=== PATIENT | female | born 1960 | race Caucasian/White ===

== ENCOUNTER 2024-08-17 11:30 | Outpatient (RCR) | payer MEDICARE, SELFPAY ==
--- NOTE | 2024-07-28 15:42 | PTNOTE_ITS ---
PT OP Initial Eval Patient Information Outpatient Physical Therapy Treatment Date: 07/28/24 Visit Reasons: RIGHT HUMEROUS FRACTURE Medical Diagnosis: Right Proximal Humerus Fracture Treatment Dx #1: Right Shoulder Mobility Deficits Treatment Dx #2: Right Shoulder Weakness Start of Care: 07/28/24 Date of Onset: 06/16/24 Smoking Status Smoking Status: Never smoker Initial Assessment Subjective: Pt is a 64 y/o female s/p right proximal humerus ORIF with bone graft secondary to fracture from a fall. Pt still has pain (7/10) with activities. Pt has limitation with self care, cooking, cleaning, chores, ovehead motions, and performing recreational activities. Objective: Right Shoulder PROM Flexion: 90 deg Abduction: 90 deg ER: neutral IR: unable Right Shoulder AROM Flexion: neutral Abduction: 10 deg ER and IR: unable Right Shoulder MMTs: grossly 2-/5 Right Scapula MMTs: grossly 2-/5 Assessment: Pt demonstrate right shoulder mobility and strength deficits s/p surgery leading to difficulty with ADLs. Pt will benefit from physical therapy to increase ROM, strength, and work on stability. Short Term and Pipe Fitter Helper Goals 1) Increase right shoulder PROM WFL in 12 wks to prevent frozen shoulder 2) Increase right shoulder AROM WFL in 12 wks to be able to perform overhead motions 3) Increase right shoulder MMTs grossly to 4-/5 in 12 wks to be able to perform lifting activities 4) Increase right scapula MMTs grossly to 4-/5 in 12 wks to be able to perform self care activities 5) Indep with HEP Treatment Plan 1) Manual Therapy 2) Therapeutic Activities 3) Therapeutic Exercises 4) Modalities (ice, heat) Frequency and Duration: 2 x wk for 12 wks Certification Dates: 07/28/24 to 10/28/24 Procedure Charges OP PT Eval Mod Complex 30 minutes: Yes
--- NOTE | 2024-07-30 16:12 | PT.ODAYNRPT ---
PT Outpatient Daily Note OP Daily Note Outpatient Physical Therapy Treatment Date: 07/30/24 Visit Reasons: RIGHT HUMEROUS FRACTURE Subjective: Pt's shoulder feels a little sore and swollen. Pt mention she's been doing HEP x 3 daily and using ice. Objective: Please see flow chart for list of ther ex performed Assessment: guarded with shoulder PROM in all plane due to fear of pain. Pt's shoulder PROM increase in flexion and abduction post PT session Plan: Continue with PT Length of Time (minutes) of Treatment: 30 Minutes Procedure Charges Therapeutic Exercise 15 minutes: Yes Manual Hot Frame Tender 15 minutes: Yes
--- NOTE | 2024-08-05 12:53 | PT.ODAYNRPT ---
PT Outpatient Daily Note OP Daily Note Outpatient Physical Therapy Treatment Date: 08/05/24 Visit Reasons: RIGHT HUMEROUS FRACTURE Subjective: Pt's shoulder was sore after last session. Pt notice slight improvement with arm. Pt called surgeon's office for anti-inflammatory meds. Objective: Please see flow chart for list of ther ex performed Assessment: continue to notice edema in the forearm and hand. Advised patient to consult with surgeon next week when she follow up. Pt's PROM improved post PT session Plan: Continue with PT Length of Time (minutes) of Treatment: 30 Minutes Procedure Charges Therapeutic Exercise 30 minutes: Yes
--- NOTE | 2024-08-10 10:59 | PT.ODAYNRPT ---
PT Outpatient Daily Note OP Daily Note Outpatient Physical Therapy Treatment Date: 08/10/24 Visit Reasons: RIGHT HUMEROUS FRACTURE Subjective: Pt dropped a plate this morning due to hand weakness. Pt notice her arm still very weak and feeling inpatient. Objective: Please see flow chart for list of ther ex perfromed Assessment: progressing with shoulder abduction PROM with less pain and guarding. Continue to add more AAROM exercises with good tolerance Plan: Continue with PT Length of Time (minutes) of Treatment: 30 Minutes Procedure Charges Therapeutic Exercise 30 minutes: Yes
--- NOTE | 2024-08-13 10:54 | PT.ODAYNRPT ---
PT Outpatient Daily Note OP Daily Note Outpatient Physical Therapy Treatment Date: 08/13/24 Visit Reasons: RIGHT HUMEROUS FRACTURE Subjective: Pt's did not take pain medication this AM. Pt had a follow up appt with surgeon and is impress with her progress so far. Pt was also prescribed medication to help control swelling in the arm. Objective: Please see flow chart for list of ther ex performed Assessment: progressing with shoulder flexion and abduction PROM past shoulder height now with less pain reported. Pt continues to exhibit difficulty with shoulder ER in neutral due to pain and IR tightness Plan: Continue with PT Length of Time (minutes) of Treatment: 30 Minutes Procedure Charges Therapeutic Exercise 30 minutes: Yes
--- NOTE | 2024-08-17 12:03 | PT.ODAYNRPT ---
PT Outpatient Daily Note OP Daily Note Outpatient Physical Therapy Treatment Date: 08/17/24 Visit Reasons: RIGHT HUMEROUS FRACTURE Subjective: Pt's shoulder is feeling more stiff and ache due to cold front. Pt notice slight improvement with self care activities, however, still difficult to reach up to shoulder height Objective: Please see flow chart for list of ther ex performed Assessment: add shoulder PROM ER with good tolerance. Pt less guarded with PROM exercises. Cues to correct scapula retraction to improve form Plan: Continue with PT Length of Time (minutes) of Treatment: 30 Minutes Procedure Charges Therapeutic Exercise 30 minutes: Yes
== END 2024-08-22 23:59 | disposition home or self-care (01) ==
LOC: CPTX 11:30
PROVIDERS: PCP Student in an Organized Health Care Education/Training Program; Referring Provider Student in an Organized Health Care Education/Training Program; Visit Provider Student in an Organized Health Care Education/Training Program
DX: M79.601 Pain in right arm (principal); R53.1 Weakness; S42.201D Unspecified fracture of upper end of right humerus, subsequent encounter for fracture with routine healing; X58.XXXD Exposure to other specified factors, subsequent encounter
CPT/HCPCS: 97110; 97140; 97162

== ENCOUNTER 2024-09-22 09:00 | Outpatient (RCR) | payer MEDICARE, SELFPAY ==
--- NOTE | 2024-08-25 10:46 | PTNOTE_ITS ---
PT Outpatient Daily Note OP Daily Note Outpatient Physical Therapy Treatment Date: 08/25/24 Visit Reasons: Right humorous FX Subjective: Pt reports tightness and pain on R shoulder and arm. Pt mentioned that she was given medication to help alleviate swelling but does not feel like it is really helping at this time. Objective: Please see flow sheet for ther ex list. Assessment: Performed light STM and scar mobs, pt TTP along bicep muscle belly. Plan: Continue with POC. Length of Time (minutes) of Treatment: 30 Minutes PHOTOFINISHING LABORATORY WORKER Service Modifier Method I: Divide the number of min of care provided by the PHOTOFINISHING LABORATORY WORKER/YENIFER by the total min of care provided then multiply by 100. If greater than 11 percent modifier is required. Method II: Divide the total time of care provided to patient by 10 (round to the nearest whole number) and add 1 min. to set the minimum time requirement. If treatment total was 60 min., then 10% of 6 min PT CQ modifier applied: CQ Modifier applied Procedure Charges Therapeutic Exercise 30 minutes: Yes
--- NOTE | 2024-08-27 09:45 | PT.ODAYNRPT ---
PT Outpatient Daily Note OP Daily Note Outpatient Physical Therapy Treatment Date: 08/27/24 Visit Reasons: Right humorous FX Subjective: Pt reported soreness after last session. Objective: Please see flow sheet for ther ex list. Assessment: Interventions progression in clinic slow due to pt pain response. Plan: Continue with POC. Length of Time (minutes) of Treatment: 30 Minutes DIRECTOR OF LEARNING Service Modifier Method I: Divide the number of min of care provided by the DIRECTOR OF LEARNING/YENIFER by the total min of care provided then multiply by 100. If greater than 11 percent modifier is required. Method II: Divide the total time of care provided to patient by 10 (round to the nearest whole number) and add 1 min. to set the minimum time requirement. If treatment total was 60 min., then 10% of 6 min PT CQ modifier applied: CQ Modifier applied Procedure Charges Therapeutic Exercise 30 minutes: Yes
--- NOTE | 2024-08-31 11:49 | PT.ODAYNRPT ---
PT Outpatient Daily Note OP Daily Note Outpatient Physical Therapy Treatment Date: 08/31/24 Visit Reasons: Right humorous FX Subjective: Pt is frustrated due to the slow progress. Pt mention her is moving her arm at home as well. Pt can now pick her spoon up to feed herself Objective: Flexion and Abduction PROM: 90 deg Assessment: slight improvement with shoulder PROM. Pt starting to show slight progress with AAROM flexion and external rotation. Pt was instructed on HEP using YTB for home. Pt demonstrate exercises safely Plan: Continue with PT Length of Time (minutes) of Treatment: 30 Minutes Procedure Charges Therapeutic Exercise 30 minutes: Yes
--- NOTE | 2024-09-03 09:52 | PT.ODS1RPT ---
PT OP Progress/Discharge Note Date of Service: 09/03/24 Progress Note/DC Note Progress Note/Discharge Note: Progress Note Patient Information Visit Reasons: Right humorous FX Medical Diagnosis: Right Proximal Humerus Fracture Treatment Dx #1: Right Shoulder Mobility Deficits Treatment Dx #2: Right Shoulder Weakness Service Continue Service or Discharge: Continue Service Certification Date Certification Dates: 09/03/24 to 12/02/24 Status Subjective: Pt is frustrated due to slow progress with ROM. Pt mention dressing, eating, and self care is getting easier. Pt mention she still has limitation with reaching behind her back, lifting the arm, and overhead activities. Pt does not notice improvement with swelling in her arm despite taking the medication. Objective: Right Shoulder PROM Flexion: 100 deg Abduction: 100 deg External Rotation: 20 deg Internal Rotation: unable Right Shoulder AROM Flexion: 20 deg Abduction: 15 deg ER and IR: unable Right Shoulder MMTs: grossly 2-/5 Right Scapula MMTs: grossly 2-/5 Assessment: Pt demonstrate slow progress with shoulder ROM and strength limiting her progress towards goals and functional tasks. Pt encourage to continue HEP at home to assist with ROM and strength. Pt continues to have moderate edema in her arms despite taking anti-inflammatory medications and advised to consult with MD further in her next session. Pt has not met set goals in therapy and will continue to benefit from physical therapy; thank you for your referrals. Plan: Continue with PT and add 12 sessions (2 x wk for 6 wks) Procedure Charges Therapeutic Exercise 30 minutes: Yes
--- NOTE | 2024-09-08 11:05 | PT.ODAYNRPT ---
PT Outpatient Daily Note OP Daily Note Outpatient Physical Therapy Treatment Date: 09/08/24 Visit Reasons: Right humorous FX Subjective: Pt notice slight improvement with her fingers and arm movement. Pt still unable to lift her cup of coffee. Objective: Please see flow chart for list of ther ex performed Assessment: progressing with shoulder flexion and scaption AAROM with less pain. Pt also demonstrate improvement with right digits AROM allowing her to perform finger ladder with less limitation Plan: Continue with PT Length of Time (minutes) of Treatment: 30 Minutes Procedure Charges Therapeutic Exercise 30 minutes: Yes
--- NOTE | 2024-09-11 15:33 | PTNOTE_ITS ---
PT Outpatient Daily Note OP Daily Note Outpatient Physical Therapy Treatment Date: 09/11/24 Visit Reasons: Right humorous FX Subjective: Pt reports R shoulder continues to be stiff and painful. Objective: Please see flow sheet for ther ex list. Assessment: Pt demonstrates poor GH translation, progress with AROM slow. Plan: Continue with POC. Length of Time (minutes) of Treatment: 30 Minutes ROTOR CASTING MACHINE OPERATOR Service Modifier Method I: Divide the number of min of care provided by the ROTOR CASTING MACHINE OPERATOR/SOFTWARE TESTER by the total min of care provided then multiply by 100. If greater than 11 percent modifier is required. Method II: Divide the total time of care provided to patient by 10 (round to the nearest whole number) and add 1 min. to set the minimum time requirement. If treatment total was 60 min., then 10% of 6 min PT CQ modifier applied: CQ Modifier applied Procedure Charges Therapeutic Exercise 30 minutes: Yes
--- NOTE | 2024-09-22 12:54 | PT.ODS1RPT ---
PT OP Progress/Discharge Note Date of Service: 09/22/24 Progress Note/DC Note Progress Note/Discharge Note: Progress Note Patient Information Visit Reasons: Right humorous FX Medical Diagnosis: Right Proximal Humerus Fracture Treatment Dx #1: Right Shoulder Mobility Deficits Treatment Dx #2: Right Shoulder Weakness Service Continue Service or Discharge: Continue Service Certification Date Certification Dates: 09/22/24 to 12/21/24 Status Subjective: Pt's shoulder continues to hurt and notice slow progress with ROM. Pt is getting frustrated that shoulder is not better faster. Pt can now feed herself and perform certain ADLs with less limitation. Pt still has limitation with lifting, overhead motions, reaching behind her back, and performing recreational activities. Pt will follow up with surgeon in about a week. Objective: Right Shoulder PROM Flexion: 110 deg Abduction: 95 deg External Rotation: 45 deg Internal Rotation: 20 deg Right Shoulder AROM Flexion: 50 deg Abduction: 45 deg ER and IR: unable Right Shoulder MMTs: grossly 3-/5 Right Scapula MMTs: grossly 3-/5 Assessment: Pt continues to improve with shoulder ROM and strength each week allowing her to start light ADLs with less limitation. Pt still exhibited limited AROM and strength due to muscular restriction and rotator cuff weakness. Pt has not met set goals and will continue to benefit from physical therapy; thank you for your referrals. Plan: Continue with PT/POC and add 12 sessions (2 x wk for 6 wks) Procedure Charges Therapeutic Exercise 30 minutes: Yes
== END 2024-09-22 23:59 | disposition home or self-care (01) ==
LOC: CPTX 09:00
PROVIDERS: PCP Student in an Organized Health Care Education/Training Program; Referring Provider Student in an Organized Health Care Education/Training Program; Visit Provider Student in an Organized Health Care Education/Training Program
DX: M25.511 Pain in right shoulder (principal); R53.1 Weakness; S42.201D Unspecified fracture of upper end of right humerus, subsequent encounter for fracture with routine healing; W19.XXXD Unspecified fall, subsequent encounter
CPT/HCPCS: 97110

== ENCOUNTER 2024-10-21 11:00 | Outpatient (RCR) | payer MEDICARE, SELFPAY ==
--- NOTE | 2024-10-19 11:14 | PT.ODAYNRPT ---
PT Outpatient Daily Note OP Daily Note Outpatient Physical Therapy Treatment Date: 10/19/24 Visit Reasons: Right Humorous fracture Subjective: Pt mentioned her shoulder progress is slow but she is feeling much better. Objective: Please see flow chart for list of ther ex performed Assessment: instructed patient with post capsule stretch today since patient is able to maintain 90 deg of shoulder flexion. Pt performed exercises correctly. Pt continues to make incremental progress with shoulder ROM Plan: Continue with PT Length of Time (minutes) of Treatment: 30 Minutes Procedure Charges Therapeutic Exercise 30 minutes: Yes
== END 2024-10-23 23:59 | disposition home or self-care (01) ==
LOC: CPTX 11:00
PROVIDERS: PCP Student in an Organized Health Care Education/Training Program; Referring Provider Student in an Organized Health Care Education/Training Program; Visit Provider Student in an Organized Health Care Education/Training Program
DX: M25.511 Pain in right shoulder (principal); R53.1 Weakness; S42.201D Unspecified fracture of upper end of right humerus, subsequent encounter for fracture with routine healing; W19.XXXD Unspecified fall, subsequent encounter
CPT/HCPCS: 97110

== ENCOUNTER → 2024-11-18 | Outpatient (CLI) | payer MEDICARE, SELFPAY ==
--- NOTE | 2024-11-18 12:40 | XR_ITS ---
Examination: Bone densitometry Date and time of exam:November 18, 2024 1259 hrs. Indications: Hysterectomy age 53 postmenopausal right humerus fracture Technique: Lumbar spine and hip total bone mineralization values of an calculated. Peak reference and age match control results have been displayed. Findings: Lumbar spine total bone mineralization is1.098 gm/cm2. This is 0.5 standard deviations above peak reference. This is 2.3 standard deviations above age-matched controls. Hip total bone mineralization is 1.164 gm/cm2 This is 1.8 standard deviations above peak reference. This is 3.1 standard deviations above age-matched controls Impression: There is normal mineralization based on lumbar spine measurements. There is normal mineralization based on hip measurements
== END | disposition home or self-care (01) ==
PROVIDERS: Referring Provider Nurse Practitioner Family; Visit Provider Nurse Practitioner Family
DX: M81.0 Age-related osteoporosis without current pathological fracture (principal)
CPT/HCPCS: 77080

== ENCOUNTER 2024-11-19 09:30 | Outpatient (RCR) | payer MEDICARE, SELFPAY ==
--- NOTE | 2024-10-27 11:45 | PT.ODAYNRPT ---
PT Outpatient Daily Note OP Daily Note Outpatient Physical Therapy Treatment Date: 10/27/24 Visit Reasons: right arm fracture Subjective: Pt's arm is slowly progressing. Pt notice the yellow theraband at home is getting easier. Pt will like to increase resistance at home with a new band. Objective: Please see flow chart for list of ther ex performed Assessment: progressing with shoulder 4 way exercises with RTB. Pt was given RTB to continue shoulder 4 way at home. Plan: Continue with PT Length of Time (minutes) of Treatment: 30 Minutes Procedure Charges Therapeutic Exercise 30 minutes: Yes
--- NOTE | 2024-10-29 11:36 | PT.ODAYNRPT ---
PT Outpatient Daily Note OP Daily Note Outpatient Physical Therapy Treatment Date: 10/29/24 Visit Reasons: right arm fracture Subjective: Pt reports R arm is doing better but not where she would like. Objective: Please see flow sheet for ther ex list. Assessment: Focus on restoring ROM within pt tolerance. Plan: Continue with POc. Length of Time (minutes) of Treatment: 30 Minutes AWS ARCHITECT Service Modifier Method I: Divide the number of min of care provided by the AWS ARCHITECT/PRINTED CIRCUIT BOARDS SOLDER LEVELER by the total min of care provided then multiply by 100. If greater than 11 percent modifier is required. Method II: Divide the total time of care provided to patient by 10 (round to the nearest whole number) and add 1 min. to set the minimum time requirement. If treatment total was 60 min., then 10% of 6 min PT CQ modifier applied: CQ Modifier applied Procedure Charges Therapeutic Exercise 30 minutes: Yes
--- NOTE | 2024-11-03 10:23 | PT.ODAYNRPT ---
PT Outpatient Daily Note OP Daily Note Outpatient Physical Therapy Treatment Date: 11/03/24 Visit Reasons: right arm fracture Subjective: Pt reports shoulder has been really sore and stiff these last 4 days. Objective: Please see flow sheet for ther ex list. Assessment: Pt c/o stiffness and pain but determined to perform ther ex assigned to tolerance. Plan: Continue with POC. Length of Time (minutes) of Treatment: 30 Minutes GRIPPER INSTALLER Service Modifier Method I: Divide the number of min of care provided by the GRIPPER INSTALLER/CAREER ORIENTATION TEACHER by the total min of care provided then multiply by 100. If greater than 11 percent modifier is required. Method II: Divide the total time of care provided to patient by 10 (round to the nearest whole number) and add 1 min. to set the minimum time requirement. If treatment total was 60 min., then 10% of 6 min PT CQ modifier applied: CQ Modifier applied Procedure Charges Therapeutic Exercise 30 minutes: Yes
--- NOTE | 2024-11-05 10:48 | PTNOTE_ITS ---
PT Outpatient Daily Note OP Daily Note Outpatient Physical Therapy Treatment Date: 11/05/24 Visit Reasons: right arm fracture Subjective: Pt c/o shoulder stiffness. Objective: Please see flow sheet for ther ex list. Assessment: Added interventions completed with minimal pain. Plan: Continue with pOC. Length of Time (minutes) of Treatment: 30 Minutes MUNICIPAL CLERK Service Modifier Method I: Divide the number of min of care provided by the MUNICIPAL CLERK/YENIFER by the total min of care provided then multiply by 100. If greater than 11 percent modifier is required. Method II: Divide the total time of care provided to patient by 10 (round to the nearest whole number) and add 1 min. to set the minimum time requirement. If treatment total was 60 min., then 10% of 6 min PT CQ modifier applied: CQ Modifier applied Procedure Charges Therapeutic Exercise 30 minutes: Yes
--- NOTE | 2024-11-11 10:41 | PTNOTE_ITS ---
PT OP Progress/Discharge Note Date of Service: 11/11/24 Progress Note/DC Note Progress Note/Discharge Note: Progress Note Patient Information Visit Reasons: right arm fracture Medical Diagnosis: Right Humerus Fracture Treatment Dx #1: Right Shoulder Mobility Deficits Treatment Dx #2: Right Shoulder Weakness Service Continue Service or Discharge: Continue Service Certification Date Certification Dates: 11/11/24 to 02/08/25 Status Subjective: Pt is notice minimal progress. Pt feels that she will never reach full shoulder ROM. Pt has been able to perform self care, light lifting, and chores with less limitation. Pt still has difficulty with overhead motions, cooking, gripping activities, and performing recreational activities. Pt does not follow up with surgeon until December 2024. Objective: Right Shoulder PROM Flexion: 105 deg Abduction: 100 deg External Rotation: 70 deg Internal Rotation: 45 deg Right Shoulder AROM Flexion: 75 deg Abduction: 65 deg External Rotation: 45 deg Internal Rotation: unable Right Shoulder MMTs: grossly 3-/5 Right Scapula MMTs: grossly 3-/5 Gastrointestinal Technician Strength L: 59 lbs R: 35 lbs Assessment: Pt continues to slowly improve with shoulder mobility and strength allowing her to perform light ADLs around the house. Pt exhibit less edema in her hands and shoulder allowing her to increase agronomy location manager strength in the past few weeks. Pt continues HEP routinely at home to help with overall progress. Pt has not met set goals and will continue to benefit Plan: Continue with PT/POC and add 8 sessions (2 x wk for 4 wks) Procedure Charges Therapeutic Exercise 30 minutes: Yes
--- NOTE | 2024-11-13 12:47 | PT.ODAYNRPT ---
PT Outpatient Daily Note OP Daily Note Outpatient Physical Therapy Treatment Date: 11/13/24 Visit Reasons: right arm fracture Subjective: Pt's arm was a little fatigue post PT. Pt still has limitation with her hair. Objective: Please see flow chart for list of ther ex perfomed Assessment: able to perform OH press with 2#; decrease to decrease use of right upper trape Plan: Continue with PT Length of Time (minutes) of Treatment: 30 Minutes Procedure Charges Therapeutic Exercise 30 minutes: Yes
--- NOTE | 2024-11-16 11:58 | PT.ODAYNRPT ---
PT Outpatient Daily Note OP Daily Note Outpatient Physical Therapy Treatment Date: 11/16/24 Visit Reasons: right arm fracture Subjective: Pt's arm is better but still can't do her hair. Objective: Please see flow chart for list of ther ex performed Assessment: no change in standing shoulder AROM noted, however, improved shoulder control with supine exercises with 1# weight. Plan: Continue with PT Length of Time (minutes) of Treatment: 30 Minutes Procedure Charges Therapeutic Exercise 30 minutes: Yes
--- NOTE | 2024-11-19 10:08 | PT.ODAYNRPT ---
PT Outpatient Daily Note OP Daily Note Outpatient Physical Therapy Treatment Date: 11/19/24 Visit Reasons: right arm fracture Subjective: Pt's arm ache more than usual. Pt is exercising everyday and recently bought some weight. Pt has been using the weight more lately which she feels her ache is related to the weights. Objective: Please see flow chart for list of ther ex performed Assessment: progressing with flexion AROM using 1# weight in supine. Pt had difficulty with flexbar exercise due to shoulder fatigue; able to complete instructed reps Plan: Continue with PT Length of Time (minutes) of Treatment: 30 Minutes Procedure Charges Therapeutic Exercise 30 minutes: Yes
== END 2024-11-20 23:59 | disposition home or self-care (01) ==
LOC: CPTX 09:30
PROVIDERS: PCP Student in an Organized Health Care Education/Training Program; Referring Provider Student in an Organized Health Care Education/Training Program; Visit Provider Student in an Organized Health Care Education/Training Program
DX: M25.511 Pain in right shoulder (principal); R53.1 Weakness; R60.0 Localized edema; S42.201D Unspecified fracture of upper end of right humerus, subsequent encounter for fracture with routine healing; W19.XXXD Unspecified fall, subsequent encounter
CPT/HCPCS: 97110

== ENCOUNTER → 2024-11-27 | Outpatient (CLI) | payer MEDICARE, SELFPAY ==
[2024-11-27 12:04] LABS: Basophils % (Auto) 0 % (0-2.5); Eosinophils # (Auto) 0.1 Thou/mm3 (0.0-0.5); Eosinophils % (Auto) 2 % (0-10); Hematocrit 40.6 % (36.0-46.0); Hemoglobin 13.3 g/dL (12.0-16.0); Immature Granulocytes % (Auto) 0 % (0-0); Immature Granulocytes Auto 0.02 Thou/mm3 (0.00-0.00); Lymphocytes % (Auto) 30 % (10-50); Mean Corpuscular HGB Conc 32.8 g/dl (31.0-37.0); Mean Corpuscular Hemoglobin 28.2 pg (25.0-35.0); Mean Corpuscular Volume 86 fL (80-100); Monocytes # (Auto) 0.6 Thou/mm3 (0.0-0.8); Monocytes % (Auto) 9 % (0-12); Neutrophils % (Auto) 59 % (37-80); Nucleated Red Blood Cell % 0 /100 WBC (0); Platelet Count 300 Thou/mm3 (140-440); RDW Standard Deviation 42.3 fL (36.4-46.3); Red Blood Count 4.72 Miln/mm3 (4.00-5.20); White Blood Count 6.8 Thou/mm3 (3.6-11.0)
[2024-11-27 12:18] LABS: Glucose Estimated Average 123 mg/dL (80-131); Hemoglobin A1C 5.9 % Hgb (4.8-6.0)
[2024-11-27 12:24] LABS: Alanine Aminotransferase 21 U/L (10-49); Albumin, Serum 4.2 gm/dL (3.4-4.8); Albumin/Globulin Ratio 1.8 (1.2-2.2); Alkaline Phosphatase 79 U/L (46-116); Anion Gap 10 (7-16); Aspartate Amino Transferase 23 U/L (0-34); BUN/Creatinine Ratio 16 Ratio (12-20); Bilirubin,Total 0.7 mg/dL (0.3-1.2); Blood Urea Nitrogen 14 mg/dL (9-23); Calcium 9.2 mg/dL (8.3-10.6); Calcium (Corrected) 9.2 mg/dL (8.5-10.1); Carbon Dioxide 24.4 mMol/L (20.0-31.0); Cardiac Risk Estimate 2.5 RATIO (3.7-5.6); Chloride 106 mMol/L (98-107); Cholesterol 176 mg/dL (132-200); Creatinine (Component) 0.9 mg/dL (0.6-1.3); Globulin 2.4 gm/dL (2.3-3.5); Glucose 115 mg/dL (74-106); HDL Cholesterol 70 mg/dL (40-60); LDL Cholesterol,Calculated 89 mg/dL (0-130); Osmolality,Calculated 280 (275-295); Potassium 4.1 mMol/L (3.4-5.1); Sodium 140 mMol/L (136-145); Thyroid Stimulating Hormone 1.36 uIU/mL (0.55-4.78); Total Protein 6.6 gm/dL (5.7-8.2); Triglycerides 83 mg/dL (30-150); eGFR > 60 See Note
[2024-11-27 15:25] LABS: Collection Type, Urine Clean Catch
[2024-11-27 16:10] LABS: Bilirubin,Urine Negative (Negative); Blood,Urine Negative (Negative); Clarity,Urine Clear (Clear/Hazy); Color,Urine Lt-Yellow (Lt Yel-Yel); Culture Indicated,Urine Not Indicated; Glucose, Urine Negative (Negative); Ketones,Urine Negative (Negative); Leukocyte Esterase,Urine Negative (Negative); Nitrite,Urine Negative (Negative); PH,Urine 6.5 (5.0-7.0); Protein,Urine Negative (Neg - Trace); RBC,Urine 1 /hpf (0-3); Specific Gravity,Urine 1.011 (1.001-1.035); Squamous Epithelial Cell,Urine 1 /hpf (0-5); Urobilinogen,Urine Negative mg/dL (0.0-1.0); WBC,Urine < 1 /hpf (0-5)
== END | disposition home or self-care (01) ==
PROVIDERS: PCP Nurse Practitioner Family; Referring Provider Nurse Practitioner Family; Visit Provider Nurse Practitioner Family
DX: Z00.00 Encounter for general adult medical examination without abnormal findings (principal); R73.03 Prediabetes
CPT/HCPCS: 36415; 80053; 80061; 81001; 83036; 84443; 85025

== ENCOUNTER 2024-11-30 10:00 | Outpatient (RCR) | payer MEDICARE, SELFPAY ==
--- NOTE | 2024-11-23 11:00 | PT.ODAYNRPT ---
PT Outpatient Daily Note OP Daily Note Outpatient Physical Therapy Treatment Date: 11/23/24 Visit Reasons: right arm fracture Subjective: Pt's shoulder feels better but ache from the cold front. Pt still has difficulty picking her arm up past shoulder height. Objective: Please see flow chart for list of ther ex perfomed Assessment: progress patient to 2# weight with exercises with good tolerance; patient was fatigue post PT session Plan: Continue with PT Length of Time (minutes) of Treatment: 30 Minutes Procedure Charges Therapeutic Exercise 30 minutes: Yes
--- NOTE | 2024-11-26 11:04 | PT.ODAYNRPT ---
PT Outpatient Daily Note OP Daily Note Outpatient Physical Therapy Treatment Date: 11/26/24 Visit Reasons: right arm fracture Subjective: Pt reports R arm ROM is slow to progress but stays positive and continues to work HEP. Objective: Please see flow sheet for ther ex list. Assessment: Continued high focus on restoring ROM and strength within tolerance. Plan: Continue with POC. Length of Time (minutes) of Treatment: 30 Minutes SEA KAYAKING GUIDE Service Modifier Method I: Divide the number of min of care provided by the SEA KAYAKING GUIDE/YENIFER by the total min of care provided then multiply by 100. If greater than 11 percent modifier is required. Method II: Divide the total time of care provided to patient by 10 (round to the nearest whole number) and add 1 min. to set the minimum time requirement. If treatment total was 60 min., then 10% of 6 min PT CQ modifier applied: CQ Modifier applied Procedure Charges Therapeutic Exercise 30 minutes: Yes
--- NOTE | 2024-11-30 10:35 | PT.ODAYNRPT ---
PT Outpatient Daily Note OP Daily Note Outpatient Physical Therapy Treatment Date: 11/30/24 Visit Reasons: right arm fracture Subjective: Pt can now hold light objects with less difficulty and fatigue. Pt finally notice the small progress in therapy. Objective: Please see flow chart for list of ther ex perfromed Assessment: progress with shoulder exercises using 2# weight. Cues to correct sidelying ER to recruitment external rotators better Plan: Continue with PT Length of Time (minutes) of Treatment: 30 Minutes Procedure Charges Therapeutic Exercise 30 minutes: Yes
== END 2024-12-21 23:59 | disposition home or self-care (01) ==
LOC: CPTX 10:00
PROVIDERS: PCP Student in an Organized Health Care Education/Training Program; Referring Provider Student in an Organized Health Care Education/Training Program; Visit Provider Student in an Organized Health Care Education/Training Program
DX: M25.511 Pain in right shoulder (principal); R53.1 Weakness; S42.201D Unspecified fracture of upper end of right humerus, subsequent encounter for fracture with routine healing; W19.XXXD Unspecified fall, subsequent encounter
CPT/HCPCS: 97110